=== PATIENT | male | born 1950 | race Native Hawaiian/Other Pacific Islander ===

== ENCOUNTER 2018-05-20 22:00 | Inpatient (IN) | payer OTHER ==
[~2018-05-20] VITALS: Ht 170.2 cm; Wt 98.5 kg
[~2018-05-20 22:00] MED LIST: ALBUTEROL0.083 % IN; ALLO100T22 PO; AMLODIPINE BESYLATE PO; ASCO500T18 PO; ASPIRIN 81 LOW81 MG PO; BUME1TAB19 PO; BUMETANIDE2 MG PO; CALMOSEPTINE EX; CARV12.5 PO; CLON0.1T16 PO; DIVA500T2 PO; DIVALPROEX500 MG PO; DOCU100C10 PO; DONE5TAB PO; ESCI10TA PO; FERROUS SULF325 MG PO; FINA5TAB2 PO; FURO40TA93 PO; GLUCAGON EMERGENCY INJ; HYDRALAZINE50 MG PO; INSUINJ20 SC; ISOS30TA17 PO; ISOSORB MONO120 MG PO; JANTOVEN3 MG PO; JANTOVEN7.5 MG PO; KLOR-CON M2020 MEQ PO; LANTUS100 MG/ML SC; LEVEMIR FL100 UNIT/M SC; LEXAPRO20 MG PO; LORA1TAB17 PO; LORA2INJ21 IM; MEMA10TA2 OR; METO5TAB38 PO; MULTIPLE VITAMINS PO; NAMENDA5 MG PO; NOVOLOG SC; NOVOLOG100 MG/ML SC; OLANZAPINE5 MG PO; OLANZAPINE7.5 MG PO; PANTOPRAZOLE PO; PRAVACHOL20 MG PO; PROVERA10 MG OR; PROVERA5 MG PO; ROPINIROLE1 MG PO; SENNA8.6 MG PO; SERT50TA PO; SILV1CRE TOP; TAMS0.4C PO; TRAM50TA PO; VITAMIN B-121000 MCG PO; WARF5TAB6 PO; ZINC SULFATE220 M1 PO; [UNRECOGNIZED DRUG - CODE] INJ; [UNRECOGNIZED DRUG - CODE] PO; [UNRECOGNIZED DRUG - OTHER] PO; [UNRECOGNIZED DRUG - OTHER] TOP
--- NOTE | 2018-05-20 22:00 | NUR ---
67 YR OLD W/M PT ADMITTED FROM [facility] FOR HTN AND RENAL IMPAIRMENT. SKIN WARM AND DRY, RADIAL AND PEDAL PULSES INTACT/EVEN, LUNGS DIMINISHED TO AUSCULTATION, RESP RATE 18 NONLABORED/EVEN, O2 AT 2LPM VIA NC, BS+. PT DOES NOT MOVE LEGS OR FEET WHEN ASKED TO OR REPOSITIONED IN BED, WILL SQUEEZE TECHNICAL IMPLEMENTATION LEAD'S HANDS WHEN ASKED TO DO SO. KNOWS HIS NAME AND PT REORIENTED TO PLACE TIME SITUATION. SEVERAL MINUTES LATER PT DOES KNOW HE IS AT THE "HOSPITAL" WHEN ASKED. PT RANDOMLY YELLS OUT CURSE WORDS, CONFUSED. NO S/S OF PAIN OR DISTRESS NOTED. NOTE BILATERAL LOWER LEGS SLIGHTLY PURPLISH DISCOLORED AND SOME BRUISES NOTED. 16F LOVE PATENT DRAINING TO BEDSIDE WITH SMALL AMOUNT OF CLEAR MEDIUM YELLOW URINE NOTED IN BAG. WILL MONITOR CLOSELY, RAILS UP X3, BED IN LOW POSITION.
[2018-05-20 22:40] VITALS: BP 156/95; TEMP 97.8
[2018-05-21] VITALS (23 sets, daily range): BP systolic 98–199; BP diastolic 35–104; TEMP 97.8–100; Ht 170.2 cm; Wt 98.5 kg
--- NOTE | 2018-05-21 02:00 | NUR ---
PT RESTING IN BED WITH EYES CLOSED, NO S/S OF PAIN OR DISTRESS NOTED, RESP RATE NONLABORED, O2 AT 2LPM VIA NC, 16F LOVE PATENT DRAINING TO BEDSIDE, 20G IV LOCK INTACT TO R AC, 22G IV INTACT TO L FA WITH NS INFUSING AT 100ML/HR, REPOSITIONED TO R SIDE, FEET ELEVATED ON PILLOW, WILL MONITOR CLOSELY, RAILS UP X3, BED IN LOW POSITION. PT DOES AROUSE BRIEFLY AT TIMES AND YELLS OUT CURSE WORDS, AFTER A FEW MINUTES PT APPEARS TO GO BACK TO SLEEP.
--- NOTE | 2018-05-21 04:22 | NUR ---
PT AROUSES FOR A FEW MINUTES AND REMAINS CONFUSED EXCEPT TO PERSON. YELLING OUR CURSE WORDS, NO S/S OF PAIN OR DISTRESS NOTED, IV INTACT WITH FLUID ONGOING, RESP RATE NONLABORED, O2 AT 2LPM VIA NC, LOVE PATENT DRAINING TO BEDSIDE, VITALS BEING MONITORED, RECREATIONAL FACILITIES MOTEL MANAGER IN USE, REPOSITIONED, FEET ELEVATED ON PILLOWS, WILL MONITOR, RAILS UP, BED IN LOW POSITION.
--- NOTE | 2018-05-21 05:45 | NUR ---
PT DEPEND CHANGED, NOTE LARGE BM, RESP RATE NONLABORED, O2 IN USE, IV INTACT WITH NS INFUSING AT 200ML/HR, LOVE PATENT DRAINING TO BEDSIDE. PT REPOSITIONED AND TURNED. WILL MONITOR CLOSELY, RAILS UP, BED IN LOW POSITION.
--- NOTE | 2018-05-21 08:00 | NUR ---
AM ASSESSMENT COMPLETE
[2018-05-21 08:21] LABS: PLATELET COUNT 201 K/uL (142-355)
[2018-05-21 08:54] LABS: POTASSIUM 3.8 mmol/L (3.6-5.2)
[2018-05-21] MEDS ORDERED: TYLENOL325 MG PO (09:03)
[2018-05-21] MEDS ORDERED: SIMV10TA PO (09:18)
[2018-05-21] MEDS ORDERED: LANOOIN26 TOP (09:23)
[2018-05-21] MEDS ORDERED: MAGNSUS68 PO (09:26)
--- NOTE | 2018-05-21 11:00 | NUR ---
PT HAVING OUTBURSTS OF CUSSING LOUDLY.
--- NOTE | 2018-05-21 14:00 | NUR ---
PTS SISTER IN TO SEE PT
--- NOTE | 2018-05-21 16:15 | NUR ---
SAMSON SELF RN SPOKE WITH KATARZYNA AT [facility] IN [facility], THEY ARE NOT ACCEPTING PTS AT THIS TIME. SURYA/GERA INFORMED AND WILL INFORM CLAUDIA/KERRI
--- NOTE | 2018-05-21 17:40 | NUR ---
REPORTED CHEST XRAY TO DR TINSLEY
[2018-05-22] VITALS (24 sets, daily range): BP systolic 111–175; BP diastolic 72–103; TEMP 97.7–99.1
--- NOTE | 2018-05-22 01:55 | NUR ---
PT AROUSES TO TOW OPERATOR TOUCHING HIM, INFORMED PT THAT STAFF HAD TO REPOSITION HIM IN BED, PT ASKS WHY SEVERAL TIMES AND ALSO SAID "DAMN" A FEW TIMES. RESP RATE NONLABORED, O2 IN USE, LOVE PATENT, IV INTACT WITH FLUID ONGOING, FEET ELEVATED ON PILLOW, NO S/S OF PAIN OR DISTRESS NOTED, WILL MONITOR CLOSELY, RAILS UP X3, BED IN LOW POSITION, CALL LIGHT IN REACH.
--- NOTE | 2018-05-22 04:25 | NUR ---
PT AROUSES BRIEFLY WITH NO S/S OF PAIN OR DISTRESS NOTED, YELLED OUT A FEW CURSE WORDS AND SPOKE TO GUILLOTINE OPERATOR SHE WALKED BY HIM. 20G IV INTACT TO R WRIST WITH NS INFUSING AT 100ML/HR, 16F LOVE PATENT DRAINING TO BEDSIDE, O2 IN USE, RESP RATE NONLABORED, VITALS BEING MONITORED, BRAND STRATEGY MANAGER IN USE, REPOSITIONED TO BACK AND FEET ELEVATED ON PILLOW. WILL MONITOR, RAILS UP, BED IN LOW POSITION.
--- NOTE | 2018-05-22 08:00 | NUR ---
RECIEVED REPORT PT RESTING IN BED CALLING. ASSISTED WITH POSITION CHANGE CHECKED PT PT INC SMALL STOOL SMEAR. OBED CARE DONE, DR TINSLEY STOPPED BY WILL COME BACK TO PERFORM THORACENTESIS. CONSENT SIGNED ON CHART
[2018-05-22 09:02] LABS: POTASSIUM 3.4 mmol/L (3.6-5.2)
--- NOTE | 2018-05-22 10:50 | NUR ---
PT ATE 50% BREAKFAST ASSISTED WITH BREAKFAST TRAY FEEDING PATIENT RECIEVED AM MEDS. HOB UP HIGH FOWLERS. IV FLUIDS CONTINUES AT 100 ML HR. PT'S SISTER CALLED RECIEVED REPORT. AKED FOR MD TO CALL HER BACK.
--- NOTE | 2018-05-22 11:20 | NUR ---
DR TINSLEY HERE TALKED WITH PT, EXPLAINED PROCEDURE TO PT. PT ASSISTED TO SITTING POSITION LEANING OVER BEDSIDE TABLE. CONSENT SIGNED YESTERDAY VIA PHONE CONSENT SISTER. DR TINSLEY STUCK PT ONE TIME, INSERTED NEEDLE, OBTAINED BLOODY DRAINAGE FROM LEFT LUNG PLEURAL PULLED 1400 ML OFF LEFT PLEURAL. PT MAINTAINED SAT 99-!00% DURING PROCEDURE. LUIS E WELL. STABLE VITAL SIGNS. PT CALLING OUT AT TIMES, HAD TO KEEP REMINDING PT TO TRY TO SIT STILL JUST A LITTLE LONGER. PT LUIS E OK. HELD PRESSURE TO SITE WHEN NEEDLE REMOVED NO BLEEDING/ LEAKING. NO AIR LEAK. MAINTIAN NORMAL RESP AND SATS. SPEC SENT TO LAB. ORDERS IN FOR LAB WORK AND FOR CHEST X RAY AND CT. TO BE DONE. DR TINSLEY CALLLED TO SISTER AFTER PROCEDURE. REPORT PT STATUS.
--- NOTE | 2018-05-22 13:00 | NUR ---
ASSISTED UP IN BED ONLY ATE 25% BLOOD SUGAR 204 RECIEVED 4 UNITS REGULAR INSULIN SQ SSI. PT NOT HUNGERY REFUSED TO EAT ANY MORE. TAKING PO FLUIDS WELL.
--- NOTE | 2018-05-22 13:20 | NUR ---
TO X RAY DEPT WITH O2 ON. FOR CT CHEST AND X RAY CHEST. PT CALLING OUT TO "STOP IT" EXPLAINED TO PATIENT WHAT WE ARE DOING.
--- NOTE | 2018-05-22 14:29 | NUR ---
RESTING QUIETLY EYES CLOSED RESP EVEN SAT HIGH 90'S NO ACUTE DISTRESS NOTED.
--- NOTE | 2018-05-22 16:18 | NUR ---
RECIEVED CT CHEST RESULTS. REPORT TO DR TINSLEY. PT'S SISTER CALLED CHECKED STATUS OF PATIENT. PT RESTING IN BED HOB UP SAT 99% WEARING O2 AT 2L NC. APPEARS IN NO ACUTE DISTRESS.
[2018-05-23] VITALS (18 sets, daily range): BP systolic 116–186; BP diastolic 70–106; TEMP 97.8–98.9
--- NOTE | 2018-05-23 03:59 | NUR ---
05/22/18 2000PM PM ASSESSMENT COMPLETED. PT WAS TURNED AND REPOSITIONS. PT WAS GIVEN PO LIQUIDS. PT ATE 25 PERCENT OF HIS DINNER. 05/22/18 2100PM YELLING AND USING PROFANITY. 2200PM PT REFUSED TO TAKE PO MEDICATIONS. 05/23/18 0000AM PT WAS TURNED AND REPOSITIONED. PT DRANK 60 ML OF SODA. PT CONTINUES TO YELL AND USE PROFANITY. SEE EMAR--PT WAS GIVEB ATIVAN ORDERED. 0200 AM PT WAS REPOSITIONED. 0400AM PT RESTING AND QUIET. CM WITH NO CHABGES IN RHYTHM. PT WITH NO BLEEDING TO S/P PUNTURE SITE.
[2018-05-23 06:47] LABS: PLATELET COUNT 223 K/uL (142-355)
--- NOTE | 2018-05-23 06:47 | NUR ---
BLOOD DRAWN AND SENT TO LAB.
--- NOTE | 2018-05-23 08:49 | NUR ---
AM ASSESSEMENT DONE PT RESTING QUIETLY EYES CLOSED. PT A LITTLE FUSSY THIS AM ABOUT BEING WOKE UP. AM ASSESSEMENT DONE. REPORT LABS AND PT STATUS TO DR CONNELL. RECIEVED ORDERS.
--- NOTE | 2018-05-23 10:00 | NUR ---
RESTING IN BED HOB UP ASSISTED WITH POSITION CHANGE. CHECKED BANDAID AT THORACENTESIS SITE CLEAN DRY INTACT. NO REDNESS. IV FLUIDS AT KVO TAKING PO FLUIDS B/P ELEVATED WILL MONITOR AND NOTIFY
--- NOTE | 2018-05-23 12:30 | NUR ---
UP IN BED REPOSITIONED PT INC OF BM. OBED CARE DONE PT YELLING OUT TO STOP. ASKED IF HE WERE IN ANY PAIN STATED NO. ASSISTED WITH CLEAN UP OBED CARE WILL ASSIST WITH LUNCH TRAY.
--- NOTE | 2018-05-23 14:30 | NUR ---
CONTINUE TO OFFER LUNCH TO PT WILL TAKE A FEW BITES STATES " THAT'S ALL" REFUSES ANY MORE, WAIT ABOUT 15 MIN PT WILL TAKE A FEW MORE BITES. HOB UP. DR CONNELL VISITED CHECKED PT.
--- NOTE | 2018-05-23 15:43 | NUR ---
KEEPS CALLING OUT, STATES "I'M READY" ? APPEARS TO BE GETTING AGITATED, CALLING OUT MORE AND MORE. WITH GIVE ATIVAN 1 MG SLOW IV.
--- NOTE | 2018-05-23 17:06 | NUR ---
PT INC LARGE BROWN SOFT STOOL, ASSISTED WITH CLEAN UP RECIEVED BED BATH AND BED CHANGE. TURNED AND REPOSITIONED IN BED HOB UP. PT USED FOUL LANGUAGE WHILE GETTING BATH, SETTLED DOWN AFTER BATH. SKIN CARE LOVE CARE DONE.
[2018-05-24] VITALS (12 sets, daily range): BP systolic 120–166; BP diastolic 68–107; TEMP 97.6–98.4
--- NOTE | 2018-05-24 00:53 | NUR ---
PT CONTINUES TO YELL AND USE PROFANITY. MONITORING BP AND RECHECKING. PT WAS GIVEN PO HYDRALAZINE AT 2100PM.
[2018-05-24 07:37] LABS: PLATELET COUNT 209 K/uL (142-355)
[2018-05-24 07:49] LABS: POTASSIUM 3.2 mmol/L (3.6-5.2)
--- NOTE | 2018-05-24 09:10 | NUR ---
ALL SCHEDULED AM MEDS ADMINISTERED. ASSISTED PT WITH FEEDING OF BREAKFAST TRAY. PT CONSUMED 75% OF TRAY. NO COMPLAINTS VOICED.
--- NOTE | 2018-05-24 11:03 | NUR ---
PT YELLING OUT AND CUSSING. ASKED PT IF HE NEEDED ANYTHING AND PT DENIES ANY COMPLAINTS.
--- NOTE | 2018-05-24 13:05 | NUR ---
PT YELLING OUT CURSE WORDS AND PULLING AT TELEMETRY WIRES. ATTEMPTS MADE TO REORIENT PT.
--- NOTE | 2018-05-24 13:16 | NUR ---
ASSISSTED PT WITH FEEDING OF LUNCH TRAY. PT CONSUMED AROUND 25% OF TRAY AND STATED "I DON'T WANT ANYMORE". PT VOICES NO COMPLAINTS.
--- NOTE | 2018-05-24 14:04 | NUR ---
VISITORS AT BEDSIDE
--- NOTE | 2018-05-24 14:58 | NUR ---
DR. CONNELL AT BEDSIDE
--- NOTE | 2018-05-24 15:40 | NUR ---
PT CALLING OUT STILL. ATTEMPTS MADE TO REORIENT PT. WHEN ASKED IF PT NEEDS ANYTHING PT STATES "NO"
--- NOTE | 2018-05-24 18:10 | NUR ---
PT REFUSED SUPPER TRAY STATED THAT "I DONT THINK I CAN EAT RIGHT NOW" WILL HOLD SUPER TRAY IN ROOM AND TRY TO GET PT TO EAT AT A LATER TIME.
[2018-05-25] VITALS (17 sets, daily range): BP systolic 108–184; BP diastolic 67–118; TEMP 98.1–99.1
[2018-05-25 04:14] LABS: PLATELET COUNT 230 K/uL (142-355)
[2018-05-25 05:16] LABS: POTASSIUM 3.4 mmol/L (3.6-5.2)
--- NOTE | 2018-05-25 08:00 | NUR ---
PT RESTING WITH EYES OPEN,NO CURSING OR HOLLERING AT STAFF.
--- NOTE | 2018-05-25 09:15 | NUR ---
PT FED 75% OF MEAL,FED PER [place] [facility].DENIES PAIN,RR RATE.22.
--- NOTE | 2018-05-25 13:05 | NUR ---
LABS DRAWN & TO LAB. PT BEING FED LUNCH.
--- NOTE | 2018-05-25 14:15 | NUR ---
PT WITH LARGE SOFT BROWN BM,OBED CARE & PT REPOSITIONED FOR COMFORT.
--- NOTE | 2018-05-25 17:00 | NUR ---
PT WITH DIVINE SHIELDS. MOUTHCARE. PT ASSISTED TO TURN FOR COMFORT.
--- NOTE | 2018-05-25 20:42 | NUR ---
RADIOLOGY AT BEDSIDE DOING PORTABLE CHEST X-RAY.
[2018-05-26] VITALS (14 sets, daily range): BP systolic 119–170; BP diastolic 54–108; TEMP 98.2–100.2
--- NOTE | 2018-05-26 00:12 | NUR ---
PT FOUND RESTING WITH EYES CLOSED, NO S/S OF PAIN OR DISTRESS NOTED, 20G IV INTACT TO R WRIST WITH NS INFUSING AT 30ML/HR, 16F LOVE PATENT DRAINING TO BEDSIDE, RESP RATE REMAINS ELEVATED IN MID TO HIGH 20s, SHORTHAND TEACHER IN USE WITH TACHYCARDIA NOTED FROM 105-115, VITALS BEING MONITORED, PT REPOSITIONED IN BED TO R SIDE, FEET ELEVATED ON PILLOW, O2 AT 2LPM VIA NC WITH SAT 98-100%, WILL MONITOR CLOSELY, RAILS UP X3, BED IN LOW POSITION.
--- NOTE | 2018-05-26 01:30 | NUR ---
TEMP HAS DECREASED TO 99.4 AXILLARY SINCE ADX OF TYLENOL 650MG PO X 1 DOSE AROUND 0042. WILL CONTINUE TO MONITOR CLOSELY, RAILS UP, BED IN LOW POSITION, PT RESTING WITH EYES CLOSED, NO S/S OF DISTRESS NOTED.
--- NOTE | 2018-05-26 02:00 | NUR ---
PT RESTING WITH EYES CLOSED, NO S/S OF PAIN OR DISTRESS NOTED, RESP RATE REMAINS ELEVATED, O2 AT 2LPM VIA NC, LOVE PATENT DRAINING TO BEDSIDE, IV INTACT WITH FLUID ONGOING. PT REPOSITIONED TO BACK, HOB REMAINS ELEVATED, ELECTRONICS TEACHER IN USE, RAILS UP X3, BED IN LOW POSITION, WILL MONITOR CLOSELY.
[2018-05-26 06:00] LABS: PLATELET COUNT 223 K/uL (142-355)
--- NOTE | 2018-05-26 06:00 | NUR ---
RESTING WITH EYES CLOSED, NO S/S OF PAIN OR DISTRESS NOTED, BOTH IV SITES INTACT WITH FLUID ONGOING, RESP RATE 20 NONLABORED, O2 AT 2LPM VIA NC, LOVE PATENT DRAINING TO BEDSIDE, PUBLIC WORKS SUPERVISOR IN USE, VITALS BEING MONITORED. REPOSITIONED TO L SIDE, FEET ELEVATED ON PILLOW, WILL MONITOR, RAILS UP X3, BED IN LOW POSITION.
[2018-05-26 06:16] LABS: POTASSIUM 3.6 mmol/L (3.6-5.2)
--- NOTE | 2018-05-26 08:06 | NUR ---
AM ASSESSEMENT PT RESTING QUIETLY AWAKEN AM CARE RESP EVEN SAT 100% WEARING O2 AT 2L NC. LUNG SOUNDS DIMISHED LEFT SIDE USING ABD MUSCLES BREATHING AT TIME. PT DENIES PAIN SHORTNESS OF BREATH. HOB UP AM CARE DONE.
--- NOTE | 2018-05-26 08:39 | NUR ---
ASSISTED UP IN BED, AM CARE ASSISTED WITH BREAKFAST.
--- NOTE | 2018-05-26 09:19 | NUR ---
DR CONNELL VISITED CHECKED PT. PATIENT TO RETURN TO [facility]ISON IN [place] TODAY. ATE ALL BREAKFAST HOB UP TOOK AM MEDS NO COMPLAINTS.
--- NOTE | 2018-05-26 10:35 | NUR ---
TURNED AND REPOSITIONED IN BED INC SMALL STOOL CLEANED TURNED ON SIDE OFFERED TO ASSIT PT WITH SHAVE REFUSED. HOB UP. SKIN CARE DONE.
--- NOTE | 2018-05-26 12:00 | NUR ---
PT TURNED AND REPOSITIONED INC OF BOWEL TURNED CLEANED OBED CARE DONE. RECIEVED BATH. SKIN CARE CALLED TO [facility] [place], PT TO GO BACK TODAY TO [place]. SPOKE WITH [facility]. NEEDED DISCHARGE ORDERS SPOKE WITH [facility] WORKING ON PAPER WORK FOR TRANSFER. CHART COPIED CALLED TO TRANSPORT.
--- NOTE | 2018-05-26 13:00 | NUR ---
ATE ALL LUNCH BLOOD SUGAR 250 RECIEVED 4 UNITS REGULAR INSULIN SQ. REMOVED IV RIGHT WRIST AND LEFT AND LEFT WRIST IV SITES CLEAN AND DRY, CATHS INTACT. NO REDNESS NO SWELLING.
--- NOTE | 2018-05-26 14:19 | NUR ---
CALLED REPORT TO [facility]. DIANE MONTANA RN NURSE TAKING CALL. WILL BE WAITING FOR PATIENT. WAITING FOR TRANSPORT TO RETURN.
--- NOTE | 2018-05-26 14:45 | NUR ---
[facility] HERE, ATS, AMBULANCE TRANSPORT SERVICE HERE RECIEVED REPORT CHECKED PT, NO BM CONTINUES TO BE CLEAN AND DRY. REPORT TO ATS PT MOVED TO [facility] PT DISCHARGED TO [facility]
== END 2018-05-26 14:45 | DRG 187 ==
LOC: ICU 22:00
PROVIDERS: Family Medicine; ADMIT Emergency Medicine
PROC: 0W9B3ZZ Drainage of Left Pleural Cavity, Percutaneous Approach (ICD-10-PCS; principal; 2018-05-22)
DX: J90 Pleural effusion, not elsewhere classified (principal); I12.0 Hypertensive chronic kidney disease with stage 5 chronic kidney disease or end stage renal disease; N18.5 Chronic kidney disease, stage 5; F03.90 Unspecified dementia, unspecified severity, without behavioral disturbance, psychotic disturbance, mood disturbance, and anxiety; F25.8 Other schizoaffective disorders; E86.0 Dehydration; E87.6 Hypokalemia; I50.9 Heart failure, unspecified; E11.22 Type 2 diabetes mellitus with diabetic chronic kidney disease; I48.91 Unspecified atrial fibrillation; G47.33 Obstructive sleep apnea (adult) (pediatric); N40.0 Benign prostatic hyperplasia without lower urinary tract symptoms
CPT/HCPCS: 36415; 80048; 80053; 82150; 82465; 82945; 83615; 83735; 83986; 84155; 84315; 84478; 85027; 85610; 87070; 87205; 88160; 89050; 94760; J0696; J1815; J2060